=== PATIENT | female | born 1955 | race Caucasian/White ===

== ENCOUNTER 2019-05-02 13:18 | Emergency (ER) | payer SELFPAY ==
[2019-05-02 13:51] LABS: Absolute Lymphocytes (CBC) 1.3 K/uL (0.7-4.9); Basophils % 0.2 % (0-1.3); Hematocrit 36.4 % (36.0-45.0); Lymphocytes % 25.2 % (15.3-44.8); MPV 9.6 fL (7.6-11.3); RBC Red Blood Cell Count 4.03 M/uL (3.86-4.86)
[2019-05-02 13:52] LABS: Protime INR 1.05
[2019-05-02 14:29] LABS: ALT/SGPT 16 U/L (12-78); AST/SGOT 10 U/L (15-37); Alkaline Phosphatase 119 U/L (45-117); BUN Blood Urea Nitrogen 17 mg/dL (7-18); Bicarbonate 29 mmol/L (21-32); Bilirubin Direct 0.2 mg/dL (0-0.2); Bilirubin Total 0.7 mg/dL (0.2-1.0); Glucose Level 93 mg/dL (74-106); Potassium 4.3 mmol/L (3.5-5.1); Sodium Level 143 mmol/L (136-145)
[2019-05-02 14:30] LABS: Albumin 3.3 g/dL (3.4-5.0); Magnesium 1.8 mg/dL (1.8-2.4); NT PRO-BNP 487 pg/mL (<125); Protein, Total 6.5 g/dL (6.4-8.2); Troponin (Emerg Dept Use Only) < 0.02 ng/mL (0.0-0.045)
[2019-05-02] MEDS ORDERED: NA CHLORIDE 0.9% 1,000 ML ONE (14:31)
--- NOTE | 2019-05-02 15:06 | RAD REPORT ---
EXAM DESCRIPTION: RAD - Chest Single View - 05/02/2019 2:18 pm CLINICAL HISTORY: Chest pain COMPARISON: September 2016 TECHNIQUE: AP portable chest image was obtained 1402 hours . FINDINGS: No focal mass or consolidation. Patient has chronic interstitial lung disease that is not substantially different. Fullness of the right hilum is present. This is believed to be the affects o f rotation. Mass is unlikely but can be better evaluated with standard two view imaging. No dense mas s or consolidation of the right perihilar region. Heart and vasculature are normal. No measurable ple ural effusion and no pneumothorax. No acute bony abnormality seen. No acute aortic findings suspected . IMPRESSION: Chronic interstitial lung disease not substantially different from comparison. No focal mass or consolidations seen. Chronic disease could mask early edema or infiltrate. Fullness of the right hilum is believed to be artifact of rotation rather than mass. As clinical find ings warrant, followup two view examination could be obtained.
--- NOTE | 2019-05-02 17:20 | ER ---
Nurse's Notes [facility] Name: Cydney Muhammad Age: 63 yrs Sex: Female : 1955 Arrival Date: 05/02/2019 Time: 13:17 Bed 13 Private MD: Diagnosis: Chest pain, unspecified Presentation: 05/02 13:04 Presenting complaint: EMS states: Pt. c/o chest pain on the left chest, does not rb1 radiate. No aspirin was given due to a liver transplant, and no Nitro was given due to BP 102/60. Has a cough and congestion, currently on her second Z-pack. Has had flu like symptoms for a week. Reports feeling dizzy. 12- lead was SR. BP 102/60, 140/80, P 70's, 98% 2 L NC. Allergy to penicillin and sulfa drugs. Transition of care: patient was not received from another setting of care. Onset of symptoms was May 02, 2019. Risk Assessment: Do you want to hurt yourself or someone else? Patient reports no desire to harm self or others. Initial Sepsis Screen: Does the patient meet any 2 criteria? No. Patient's initial sepsis screen is negative. Does the patient have a suspected source of infection? No. Patient's initial sepsis screen is negative. Care prior to arrival: None. 13:04 Method Of Arrival: EMS: [facility] 13:04 Acuity: PO 3 rb1 Triage Assessment: 13:04 General: Appears in no apparent distress. comfortable, Behavior is calm, cooperative, rb1 Denies fever. Pain: Complains of pain in anterior aspect of left upper chest Pain currently is 5 out of 10 on a pain scale. Quality of pain is described as dull. Neuro: Level of Consciousness is awake, alert, obeys commands, Oriented to person, place, time, situation. Neuro: Reports dizziness, weakness in generalized. Cardiovascular: Capillary refill < 3 seconds is brisk in bilateral fingers. Respiratory: Reports shortness of breath cough that is Reports cough/congestion is currently on her 2nd round of a Z-pack. Airway is patent Respiratory effort is even, unlabored, Respiratory pattern is regular, symmetrical. GI: No signs and/or symptoms were reported involving the gastrointestinal system. : No signs and/or symptoms were reported regarding the genitourinary system. Derm: Skin is pink, warm \T\ dry. Musculoskeletal: Range of motion: intact in all extremities. Historical: - Allergies: 13:04 Codeine; rb1 13:04 Darvon; rb1 13:04 Sulfa (Sulfonamide Antibiotics); rb1 13:04 Tetracycline; rb1 13:04 PENICILLINS; rb1 - PMHx: 13:04 Cirrhosis; GERD; Hypothyroidism; rb1 - PSHx: 13:04 Cholecystectomy; Hysterectomy; Liver Transplant; Verices banded; Tonsillectomy; rb1 - Immunization history:: Adult Immunizations up to date. - Social history:: Smoking status: Patient uses tobacco products, denies chronic smoking, but will smoke occasionally. - Ebola Screening: : Patient negative for fever greater than or equal to 101.5 degrees Fahrenheit, and additional compatible Ebola Virus Disease symptoms. Screenin:04 Abuse screen: Denies threats or abuse. Nutritional screening: No deficits noted. rb1 Tuberculosis screening: No symptoms or risk factors identified. Fall Risk None identified. Assessment: 13:04 Pain: Pain does not radiate. rb1 13:04 General: See triage assessment. rb1 14:00 Reassessment: Patient appears in no apparent distress at this time. Patient and/or rb1 family updated on plan of care and expected duration. Pain level reassessed. Patient is alert, oriented x 3, equal unlabored respirations, skin warm/dry/pink. Patient states symptoms have improved. 14:45 Reassessment: Patient appears in no apparent distress at this time. Pt. is talking on rb1 her telephone. 15:44 Reassessment: Patient appears in no apparent distress at this time. Patient and/or rb1 family updated on plan of care and expected duration. Pain level reassessed. Patient is alert, oriented x 3, equal unlabored respirations, skin warm/dry/pink. 16:44 Reassessment: Patient appears in no apparent distress at this time. No changes from rb1 previously documented assessment. Patient states symptoms have improved. 17:22 Reassessment: Patient appears in no apparent distress at this time. Patient and/or rb1 family updated on plan of care and expected duration. Pain level reassessed. Patient is alert, oriented x 3, equal unlabored respirations, skin warm/dry/pink. Patient states feeling better. Vital Signs: 13:04 BP 109 / 64; Pulse 75; Resp 19; Temp 98.1; Pulse Ox 95% on 2 lpm NC; Weight 53.98 kg rb1 (R); Height 5 ft. 4 in. (162.56 cm) (R); 13:49 BP 111 / 58 Supine; Pulse 70; jb1 13:49 BP 109 / 63 Sitting; Pulse 75; jb1 13:49 BP 116 / 68 Standing; Pulse 77; jb1 14:02 BP 116 / 68; Pulse 86; Resp 20; Pulse Ox 95% on 2 lpm NC; Pain 2/10; rb1 15:00 BP 102 / 53; Pulse 73; Resp 20; Pulse Ox 99% on R/A; rb1 16:00 BP 105 / 64; Pulse 75; Resp 17; Pulse Ox 99% on R/A; Pain 2/10; rb1 17:00 BP 102 / 61; Pulse 79; Resp 19; Pulse Ox 99% on R/A; Pain 1/10; rb1 13:04 Body Mass Index 20.43 (53.98 kg, 162.56 cm) rb1 ED Course: 13:04 Maintain EMS IV. Dressing intact. Good blood return noted. Site clean \T\ dry. Gauge \T\ rb 1 site: 20 G L AC. Oxygen administration via nasal cannula \T\ 2L/min. 13:04 Arm band placed on right wrist. rb1 13:04 Patient has correct armband on for positive identification. Bed in low position. Call rb1 light in reach. Side rails up X 1. records and information manager on. Pulse ox on. NIBP on. Warm blanket given. socks. 13:17 Patient arrived in ED. rb1 13:21 Pepper Alfonso, JAIME is [facility]. kb 13:21 Juma Earl MD is Attending Physician. kb 13:25 Triage completed. rb1 13:26 Ashley Currie, ETELVINA is Primary Nurse. rb1 13:39 EKG done, by cmm technician. reviewed by Juma Earl MD. at1 14:26 XRAY Chest (1 view) In Process Unspecified. EDMS 16:38 Repeat lab(s) drawn. by me, sent to lab. EKG done, by ED staff, reviewed by Pepper SANDOVAL. 16:39 Troponin (emerg Dept Use Only) Sent. jb1 17:37 No provider procedures requiring assistance completed. IV discontinued, intact, rb1 bleeding controlled, No redness/swelling at site. Pressure dressing applied. Administered Medications: 14:31 Drug: NS 0.9% 1000 ml Route: IV; Rate: 1000 ml; Site: left antecubital; rb1 15:43 Follow up: IV Status: Completed infusion rb1 Outcome: 17:19 Discharge ordered by . kb 17:37 Patient left the ED. rb1 17:37 Discharged to home ambulatory. rb1 17:37 Condition: stable 17:37 Discharge instructions given to patient, Instructed on discharge instructions, follow up and referral plans. Demonstrated understanding of instructions, follow-up care. Signatures: Dispatcher [employer] Guillermo Robbins jb1 Pepper Alfonso, FABRIC AND TEXTILE FACTORY WORKER-C FABRIC AND TEXTILE FACTORY WORKER-Ckb Gypsy Lopez, sales representative girls' apparel EKG Tat1 Ashley Currie, RN RN rb1
--- NOTE | 2019-05-02 17:20 | EDPHYS ---
Physician Documentation [facility] Name: Cydney Muhammad Age: 63 yrs Sex: Female : 1955 Arrival Date: 05/02/2019 Time: 13:17 Bed 13 Private MD: ED Physician Juma Earl HPI: 05/02 15:00 This 63 yrs old Female presents to ER via EMS with complaints of Chest Pain. kb 15:01 The patient or guardian reports chest pain that is located primarily in the anterior kb chest wall, left. Onset: 1 hour(s) ago. The pain does not radiate. Associated signs and symptoms: Pertinent positives: cough, dizziness, lightheadedness, near-syncope. The chest pain is described as dull, sharp. Duration: The patient or guardian reports a single episode. Severity of pain: At its worst the pain was moderate in the emergency department the pain has improved moderately. The patient has not experienced similar symptoms in the past. The patient has not recently seen a physician. Pt reports she had had a cough and congestion for a week. Today she went to the [employer] store and had chest pain, felt weak and dizzy when standing in line. Got home and had the feeling again and like she might pass out so she called 911. Pt reports pain was sharp at the time it started and is now dull and continuously getting better. . Historical: - Allergies: 13:04 Codeine; rb1 13:04 Darvon; rb1 13:04 Sulfa (Sulfonamide Antibiotics); rb1 13:04 Tetracycline; rb1 13:04 PENICILLINS; rb1 - PMHx: 13:04 Cirrhosis; GERD; Hypothyroidism; rb1 - PSHx: 13:04 Cholecystectomy; Hysterectomy; Liver Transplant; Verices banded; Tonsillectomy; rb1 - Immunization history:: Adult Immunizations up to date. - Social history:: Smoking status: Patient uses tobacco products, denies chronic smoking, but will smoke occasionally. - Ebola Screening: : Patient negative for fever greater than or equal to 101.5 degrees Fahrenheit, and additional compatible Ebola Virus Disease symptoms. ROS: 14:58 Constitutional: Negative for fever, chills, and weight loss, ENT: Negative for injury, kb pain, and discharge, Neck: Negative for injury, pain, and swelling, Abdomen/GI: Negative for abdominal pain, nausea, vomiting, diarrhea, and constipation, Back: Negative for injury and pain, MS/Extremity: Negative for injury and deformity, Skin: Negative for injury, rash, and discoloration. 14:58 Cardiovascular: Positive for chest pain, Negative for edema, orthopnea, palpitations, paroxysmal nocturnal dyspnea. 14:59 Neuro: Positive for dizziness, weakness. kb 15:01 Respiratory: Positive for cough, Negative for dyspnea on exertion, hemoptysis, kb orthopnea, pleurisy, shortness of breath, sputum production, wheezing. Exam: 14:59 Constitutional: This is a well developed, well nourished patient who is awake, alert, kb and in no acute distress. Head/Face: Normocephalic, atraumatic. ENT: Nares patent. No nasal discharge, no septal abnormalities noted. Tympanic membranes are normal and external auditory canals are clear. Oropharynx with no redness, swelling, or masses, exudates, or evidence of obstruction, uvula midline. Mucous membranes moist. Neck: Trachea midline, no thyromegaly or masses palpated, and no cervical lymphadenopathy. Supple, full range of motion without nuchal rigidity, or vertebral point tenderness. No Meningismus. Chest/axilla: Normal chest wall appearance and motion. Nontender with no deformity. No lesions are appreciated. Cardiovascular: Regular rate and rhythm with a normal S1 and S2. No gallops, murmurs, or rubs. Normal PMI, no JVD. No pulse deficits. Respiratory: Lungs have equal breath sounds bilaterally, clear to auscultation and percussion. No rales, rhonchi or wheezes noted. No increased work of breathing, no retractions or nasal flaring. Abdomen/GI: Soft, non-tender, with normal bowel sounds. No distension or tympany. No guarding or rebound. No evidence of tenderness throughout. Skin: Warm, dry with normal turgor. Normal color with no rashes, no lesions, and no evidence of cellulitis. MS/ Extremity: Pulses equal, no cyanosis. Neurovascular intact. Full, normal range of motion. Neuro: Awake and alert, GCS 15, oriented to person, place, time, and situation. Cranial nerves II-XII grossly intact. Motor strength 5/5 in all extremities. Sensory grossly intact. Cerebellar exam normal. Normal gait. Vital Signs: 13:04 BP 109 / 64; Pulse 75; Resp 19; Temp 98.1; Pulse Ox 95% on 2 lpm NC; Weight 53.98 kg rb1 (R); Height 5 ft. 4 in. (162.56 cm) (R); 13:49 BP 111 / 58 Supine; Pulse 70; jb1 13:49 BP 109 / 63 Sitting; Pulse 75; jb1 13:49 BP 116 / 68 Standing; Pulse 77; jb1 14:02 BP 116 / 68; Pulse 86; Resp 20; Pulse Ox 95% on 2 lpm NC; Pain 2/10; rb1 15:00 BP 102 / 53; Pulse 73; Resp 20; Pulse Ox 99% on R/A; rb1 16:00 BP 105 / 64; Pulse 75; Resp 17; Pulse Ox 99% on R/A; Pain 2/10; rb1 17:00 BP 102 / 61; Pulse 79; Resp 19; Pulse Ox 99% on R/A; Pain 1/10; rb1 13:04 Body Mass Index 20.43 (53.98 kg, 162.56 cm) rb1 MDM: 13:21 Patient medically screened. kb 14:58 Data reviewed: vital signs, nurses notes. Data interpreted: Pulse oximetry: on room air kb is 95 %. Interpretation: normal. 16:20 ED course: Pt takes antirejection medications between 5 and 6 and cannot take them at any other time. Asks to leave now. Educated that we are waiting to repeat troponin and EKG 4 hours as after first draw to make sure there is no change. Pt requests that we do it at 1630 instead so she can be home in time to take her medications. . 17:14 Counseling: I had a detailed discussion with the patient and/or guardian regarding: the kb historical points, exam findings, and any diagnostic results supporting the discharge/admit diagnosis, lab results, radiology results, the need for outpatient follow up, a family practitioner, to return to the emergency department if symptoms worsen or persist or if there are any questions or concerns that arise at home. 05/02 13:21 Order name: Basic Metabolic Panel; Complete Time: 14:35 kb 05/02 13:21 Order name: CBC with Diff; Complete Time: 13:57 kb 05/02 13:21 Order name: LFT's; Complete Time: 14:35 kb 05/02 13:21 Order name: Magnesium; Complete Time: 14:35 kb 05/02 13:21 Order name: NT PRO-BNP; Complete Time: 14:35 kb 05/02 13:21 Order name: PT-INR; Complete Time: 13:57 kb 05/02 13:21 Order name: Troponin (emerg Dept Use Only); Complete Time: 14:35 kb 05/02 13:21 Order name: XRAY Chest (1 view); Complete Time: 15:15 kb 05/02 13:21 Order name: EKG; Complete Time: 13:22 kb 05/02 13:21 Order name: Cardiac monitoring; Complete Time: 13:40 kb 05/02 13:21 Order name: Flu; Complete Time: 14:19 kb 05/02 16:23 Order name: Troponin (emerg Dept Use Only); Complete Time: 17:19 kb 05/02 16:23 Order name: EKG; Complete Time: 16:24 kb 05/02 13:21 Order name: EKG - Nurse/Tech; Complete Time: 13:41 kb 05/02 13:21 Order name: IV Saline Lock; Complete Time: 13:40 kb 05/02 13:21 Order name: Labs collected and sent; Complete Time: 13:40 kb 05/02 13:21 Order name: O2 Per Protocol; Complete Time: 13:40 kb 05/02 13:21 Order name: O2 Sat Monitoring; Complete Time: 13:40 kb 05/02 13:21 Order name: Orthostatics; Complete Time: 13:50 kb 05/02 16:23 Order name: EKG - Nurse/Tech; Complete Time: 16:39 kb Administered Medications: 14:31 Drug: NS 0.9% 1000 ml Route: IV; Rate: 1000 ml; Site: left antecubital; rb1 15:43 Follow up: IV Status: Completed infusion rb1 Disposition: 19:08 Co-signature as Attending Physician, Juma Earl MD. rn Disposition: 05/02/19 17:19 Discharged to Home. Impression: Chest pain, unspecified. - Condition is Stable. - Discharge Instructions: Nonspecific Chest Pain, [id number]. - Medication Reconciliation Form, Thank You Letter, Antibiotic Education, Prescription Opioid Use form. - Follow up: Emergency Department; When: As needed; Reason: Worsening of condition. Follow up: Private Physician; When: 2 - 3 days; Reason: Recheck today's complaints, Continuance of care, Re-evaluation by your physician. Signatures: Dispatcher [employer] EDMS Kaden Pepper, THERMO CEMENTING FOLDER OPERATOR-C THERMO CEMENTING FOLDER OPERATOR-Juma Del Toro MD MD rn Barber, Rebecca, RN RN rb1 Corrections: (The following items were deleted from the chart) 14:59 14:58 Constitutional: Negative for fever, chills, and weight loss, ENT: Negative for kb injury, pain, and discharge, Neck: Negative for injury, pain, and swelling, Respiratory: Negative for shortness of breath, cough, wheezing, and pleuritic chest pain, Abdomen/GI: Negative for abdominal pain, nausea, vomiting, diarrhea, and constipation, Back: Negative for injury and pain, MS/Extremity: Negative for injury and deformity, Skin: Negative for injury, rash, and discoloration, Neuro: Negative for headache, weakness, numbness, tingling, and seizure, kb 15:01 14:58 Constitutional: Negative for fever, chills, and weight loss, ENT: Negative for kb injury, pain, and discharge, Neck: Negative for injury, pain, and swelling, Respiratory: Negative for shortness of breath, cough, wheezing, and pleuritic chest pain, Abdomen/GI: Negative for abdominal pain, nausea, vomiting, diarrhea, and constipation, Back: Negative for injury and pain, MS/Extremity: Negative for injury and deformity, Skin: Negative for injury, rash, and discoloration, kb 17:37 17:19 05/02/2019 17:19 Discharged to Home. Impression: Chest pain, unspecified. rb1 Condition is Stable. Discharge Instructions: Nonspecific Chest Pain, [id number]. Forms are Medication Reconciliation Form, Thank You Letter, Antibiotic Education, Prescription Opioid Use. Follow up: Emergency Department; When: As needed; Reason: Worsening of condition. Follow up: Private Physician; When: 2 - 3 days; Reason: Recheck today's complaints, Continuance of care, Re-evaluation by your physician. kb
[2019-05-02 18:21] VITALS: BP 102/53; O2SAT 99
--- NOTE | 2019-05-02 22:55 | EKG ---
Test Date: 2019-05-02 Test Time: 13:28:49 Ream Cutter: JOVANA MEASUREMENT RESULTS: Intervals: Rate: 82 TN: 122 QRSD: 70 QT: 358 QTc: 418 [place]: P: 74 TN: 122 QRS: 74 T: 76 INTERPRETIVE STATEMENTS: Normal sinus rhythm Normal ECG Compared to ECG 10/23/2016 20:57:59 Sinus bradycardia no longer present Sinus arrhythmia no longer present Electronically Signed On 05-02-19 22:55:05 MOTOR BLOCK MECHANIC by Chon Hdez
--- NOTE | 2019-05-03 07:02 | EKG ---
Test Date: 2019-05-02 Test Time: 16:33:44 Armoured Car Escort: LEILA MEASUREMENT RESULTS: Intervals: Rate: 71 HI: 128 QRSD: 78 QT: 380 QTc: 412 [place]: P: 69 HI: 128 QRS: 80 T: 78 INTERPRETIVE STATEMENTS: Normal sinus rhythm Normal ECG Compared to ECG 05/02/2019 13:28:49 No significant changes Electronically Signed On 05-03-19 07:01:32 COMPANY DRIVER by Chno Hdez
== END 2019-05-02 17:37 | disposition home or self-care (01) ==
LOC: ER 13:18
DX: R07.9 Chest pain, unspecified (principal); E03.9 Hypothyroidism, unspecified; Z72.0 Tobacco use; Z88.0 Allergy status to penicillin; Z88.1 Allergy status to other antibiotic agents; Z88.2 Allergy status to sulfonamides; Z88.5 Allergy status to narcotic agent; Z94.4 Liver transplant status
CPT/HCPCS: 36415; 71045; 80048; 80076; 83735; 83880; 84484; 85025; 85610; 87804; 93005; 96360; 99285; J7030

== ENCOUNTER 2022-01-07 06:23 | Day surgery (SDC) | payer OTHER, SELFPAY ==
[2022-01-05 12:06] LABS: SARS-CoV-2 Antigen Rapid Res Negative (Negative)
--- NOTE | 2022-01-06 14:34 | EKG ---
Test Date: 2022-01-05 Test Time: 10:58:01 Smocker: JOSELO MEASUREMENT RESULTS: Intervals: Rate: 56 PA: 122 QRSD: 82 QT: 392 QTc: 378 [place]: P: 60 PA: 122 QRS: 72 T: 74 INTERPRETIVE STATEMENTS: Sinus bradycardia Otherwise normal ECG Compared to ECG 05/02/2019 16:33:44 Sinus rhythm no longer present Electronically Signed On 01-06-22 14:31:49 CDT by Bobby Brian
[2022-01-07] MEDS ORDERED: Ringers Lactate 1,000 ML IV ONE (06:48)
[2022-01-07] MEDS ORDERED: propofoL 200 MG/20 ML VIAL IV ONE (07:29)
[2022-01-07] MEDS ORDERED: LIDOCAINE 1% MPF 5 ML VIAL ONE (07:30)
[2022-01-07] MEDS ORDERED: MIDAZOLAM HCL 2 MG/2 ML INJ ONE (07:30)
[2022-01-07] MEDS ORDERED: FENTANYL CITR 100 MCG/2 ML ONE (07:30)
[2022-01-07] MEDS ORDERED: LIDOCAINE 1% W/EPI 1:100,000 10 ML VIAL ONE (07:59)
[2022-01-07] MEDS ORDERED: dexAMETHasone 4 MG/ML VIAL ONE (08:15)
[2022-01-07] MEDS ORDERED: KETOROLAC 30 MG/ML INJ ONE (09:31)
--- NOTE | 2022-01-07 09:41 | P.OP ---
Road Boss: NONE,NONE Preoperative diagnosis: Basal cell carcinoma right nasal sidewall Postoperative diagnosis: Same Primary procedure: Wide local excision with frozen section, nose 1.4 cm Secondary procedure: Closure via local rotational flap Anesthesia: General via LMA Estimated blood loss: 5 mL Specimen: Right nose basal cell carcinoma, suture paredes 12:00, frozen section Findings: Negative peripheral and deep margins Operative Technique: After adequate plane of anesthesia, the skin of the nose and upper face is cleaned with alcohol. The biopsy site is easily identified. The area of the glabella, nose, and right medial cheek is injected with 1% lidocaine with epinephrine. A total of 4.5 milliliters is used. The patient's face is then prepped and draped in a standard sterile fashion. An excision around the prior scar and biopsy site is designed with a gross 2 mm margin and marked with a surgical pen. A 15 blade scalpel is used to incise through the skin and subcutaneous tissues elevating the specimen sharply from the underlying soft tissues. A suture is placed at the superiormost aspect indicating 12:00. The specimen is sent to pathology for frozen section analysis. While awaiting tissue diagnosis, the surrounding tissues are carefully undermined and reconstruction considerations are made. The defect is noted to be 14 x 10 mm encompassing a large portion of the right nasal sidewall. Taking into account the patient's skin laxity, texture, and orientation of rhytids, with his desire to avoid distortion or compromise function of the right lower eyelid, I elected for closure via a rotational flap. A right superiorly based rhomboid flap was designed, cut and advanced. The flap was sutured in place with 4-0 Vicryl sutures. A small burrows triangle was excised at the border between the right medial cheek and right lower eyelid. An additional burrows triangle was excised in the lower portion of the glabella. This allowed good approximation of the tissues. Additional tension reducing sutures were applied. The skin was then closed in a running fashion using 5-0 fast absorbing gut. There was no significant tension noted along the lower eyelid with this closure. The skin was cleaned and dried, triple antibiotic ointment was applied and the patient was returned to care of anesthesia for awakening and transportation to the recovery room. Complications: None Implants: None Fluids & blood products: Crystalloid, see anesthesia record Transferred to: Recovery Room Condition: Good
[2022-01-07 09:51] VITALS: TEMP 97.6
[2022-01-07 12:01] VITALS: BP 120/44; O2SAT 97
== END 2022-01-07 10:25 | disposition home or self-care (01) ==
LOC: OR 06:23
PROVIDERS: ATTEND Otolaryngology
PROC: 0HX1XZZ Transfer Face Skin, External Approach (ICD-10-PCS; 2022-01-07)
PROC: 0JB10ZZ Excision of Face Subcutaneous Tissue and Fascia, Open Approach (ICD-10-PCS; principal; 2022-01-07 07:45)
DX: C44.311 Basal cell carcinoma of skin of nose (principal); Z72.0 Tobacco use; L57.0 Actinic keratosis; Z20.822 Contact with and (suspected) exposure to COVID-19
CPT/HCPCS: 93005; 36415; 88331; 88332; 88305; 87811; 11642; 14040; J2704; J1100; J2250; J3010; J7120

== ENCOUNTER 2023-11-28 12:36 | Emergency (ER) | payer OTHER ==
[2023-11-28] MEDS ORDERED: KETOROLAC 30 MG/ML INJ ONE (13:51)
--- NOTE | 2023-11-28 14:24 | RAD REPORT ---
EXAM DESCRIPTION: USExtrem Venous W Compress Bil11/28/2023 1:58 pm CLINICAL HISTORY: Leg swelling COMPARISON: none FINDINGS: The common femoral, superficial femoral, greater saphenous, popliteal and posterior tibial veins bilaterally are compressible and demonstrate augmentation. Doppler demonstrates good flow. Grayscale, color and spectral analysis performed on all vessels IMPRESSION: No evidence of deep venous thrombosis involving either lower extremity.
--- NOTE | 2023-11-28 14:29 | RAD REPORT ---
EXAM DESCRIPTION: US - Lower Extremity Arterial Bilat - 11/28/2023 2:10 pm CLINICAL HISTORY: Leg pain COMPARISON: None FINDINGS: Common femoral superficial femoral arteries demonstrate triphasic waveforms bilaterally The popliteal, posterior tibial and dorsalis pedis arteries bilaterally demonstrate triphasic wavefor ms No occlusion. No high-grade stenosis seen Grayscale, color and spectral analysis performed on all vessels IMPRESSION: Mild distal bilateral lower extremity arterial disease
[2023-11-28 15:34] LABS: Specific Gravity 1.015 (1.005-1.030); Sqamous Epithelial None Seen /HPF (None Seen); Urine Bacteria None Seen /HPF (<20); Urine Bilirubin NEGATIVE (Negative); Urine Blood Negative (Negative); Urine Clarity Clear (Clear); Urine Color Colorless (Yellow); Urine Culture Reflex Order NOT NEEDED; Urine Glucose NEGATIVE (Negative); Urine Ketones NEGATIVE (Negative); Urine Microscopic Reflex YN ORDER UMIC; Urine Mucus Slight /HPF (None Seen); Urine Nitrite NEGATIVE (Negative); Urine Protein NEGATIVE (Negative); Urine RBC <5 /HPF (None Seen); Urine Urobilinogen Normal (Normal); Urine WBC <5 /HPF (<5)
[2023-11-28 15:36] LABS: Absolute Lymphocytes (CBC) 1.2 K/uL (0.7-4.9); Absolute Neutrophil 12.2 K/uL (1.8-8.0); Basophils % 0.1 % (0-1.3); Eosinophils % 0.2 % (0-4.4); Hematocrit 40.7 % (36.0-45.0); Hemoglobin 13.5 g/dL (12.0-15.0); Lymphocytes % 8.4 % (15.3-44.8); MCH 31.8 pg (27.0-35.0); MCHC 33.1 g/dL (32.0-36.0); MCV 95.8 fL (80-100); MPV 8.7 fL (7.6-11.3); Monocytes % 7.1 % (3.3-12.3); Neutrophils % 84.2 % (41.7-73.7); Nucleated RBC Absolute Count 0.1 (0-0); Nucleated Red Blood Cells % 0.5 % (0-0); Platelets 260 thou/uL (152-406); RBC Red Blood Cell Count 4.24 M/uL (3.86-4.86); Red Cell Distribution Width 16.3 % (12.1-15.2)
[2023-11-28 15:38] LABS: PT Prothrombin Time 12.7 SECONDS (9.4-12.5); Protime INR 1.16
--- NOTE | 2023-11-28 15:38 | RAD REPORT ---
EXAM DESCRIPTION: RAD - Hip Left 2 View - 11/28/2023 2:38 pm CLINICAL HISTORY: Left hip pain FINDINGS: No fracture or dislocation is seen. Mild osteoarthritis left hip consisting of mild joint space narrowing and subchondral sclerosis. Bone s appear osteoporotic
[2023-11-28 15:50] LABS: ALT/SGPT 26 U/L (13-56); Alkaline Phosphatase 141 U/L (45-117); Anion Gap 2.7 mEq/L (5.0-15.0); BUN Blood Urea Nitrogen 59 mg/dL (7-18); Bicarbonate 38 mEq/L (21-32); Bilirubin Direct 0.2 mg/dL (0-0.2); Bilirubin Indirect, Calculated 0.2 mg/dL (0.2-0.8); Bilirubin Total 0.4 mg/dL (0.2-1.0); Glomerular Filtration Rate 41 ml/min (=/>90); Glucose Level 90 mg/dL (74-106); Magnesium 2.5 mg/dL (1.6-2.4); NT PRO-BNP 617 pg/mL (<125); Potassium 4.7 mEq/L (3.5-5.1); Sodium Level 139 mEq/L (136-145); Troponin High Sensitivity 7.5 pg/mL (<58.9)
[2023-11-28 15:51] LABS: AST/SGOT < 10 U/L (15-37)
--- NOTE | 2023-11-28 17:00 | RAD REPORT ---
EXAM DESCRIPTION: CT - Chest For Pe Angio - 11/28/2023 4:49 pm CLINICAL HISTORY: Chest pain COMPARISON: None. TECHNIQUE: Dynamically enhanced axial 3 mm thick images of the chest were obtained during administra tion of 100 mL Isovue 370 IV contrast. Coronal and oblique reconstruction images were generated and r eviewed. Exam utilizes a protocol for optimal evaluation of pulmonary arterial tree. Maximum intensity projections 3D imaging was utilized All CT scans are performed using dose optimization technique as appropriate and may include automated exposure control or mA/KV adjustment according to patient size. FINDINGS: A pulmonary embolus is not seen. A thoracic aortic aneurysm is not noted. A pleural effusion is not seen. A pericardial effusion is not seen. A lung consolidation is not present. Mild COPD IMPRESSION: Negative for a pulmonary embolism.
--- NOTE | 2023-11-28 17:01 | RAD REPORT ---
EXAM DESCRIPTION: Obed Single View11/28/2023 2:38 pm CLINICAL HISTORY: Swelling COMPARISON: 2019 FINDINGS: Lungs are hyperaerated. The lungs appear clear of acute infiltrate. The heart is normal size IMPRESSION: No acute abnormalities displayed
--- NOTE | 2023-11-28 17:25 | ER ---
Nurse's Notes [facility] Name: Cydney Muhammad Age: 68 yrs Sex: Female : 1955 Arrival Date: 11/28/2023 Time: 12:36 Bed 6 Private MD: Diagnosis: Edema, unspecified;Pain in left hip Presentation: 11/27 12:53 Chief complaint: Patient states: BILAT LEG SWELLING X 3 WEEKS. HX OF LIVER TRANSPLANT db 10 YRS AGO HAD LABS DONE YESTERDAY AND SENT BY PHYSICIAN FOR ELEVATED WBC 12.6, ELEVATED BUN AND POSS BLOOD CLOT. Coronavirus screen: Client denies travel out of the [place] in the last 14 days. At this time, the client does not indicate any symptoms associated with coronavirus-19. Ebola Screen: Patient negative for fever greater than or equal to 101.5 degrees Fahrenheit, and additional compatible Ebola Virus Disease symptoms Patient denies exposure to infectious person. Patient denies travel to an Ebola-affected area in the 21 days before illness onset. No symptoms or risks identified at this time. Initial Sepsis Screen: Does the patient meet any 2 criteria? No. Patient's initial sepsis screen is negative. Does the patient have a suspected source of infection? No. Patient's initial sepsis screen is negative. Risk Assessment: Do you want to hurt yourself or someone else? Patient reports no desire to harm self or others. Onset of symptoms was November 28, 2023. 12:53 Method Of Arrival: Ambulatory db 12:53 Acuity: PO 3 db Triage Assessment: 12:55 General: Appears in no apparent distress. comfortable, Behavior is calm, cooperative. db Pain: Complains of pain in right leg and left leg. Neuro: Level of Consciousness is awake, alert, obeys commands, Oriented to person, place, time. Respiratory: Airway is patent Respiratory effort is even, unlabored, Respiratory pattern is regular, symmetrical. Historical: - Allergies: 12:55 Codeine; db 12:55 Darvon; db 12:55 PENICILLINS; db 12:55 Sulfa (Sulfonamide Antibiotics); db 12:55 Tetracycline; db 12:56 tramadol; db 12:56 Flagyl; db 12:56 Levofloxacin; db 12:56 GABAPENTIN; db 12:56 Amoxicillin; db 12:56 Cipro; db 12:56 Spironolactone; db - PMHx: 12:55 Cirrhosis; GERD; Hypothyroidism; db 12:56 HEPATITIS C; RECTAL CANCER; db - PSHx: 12:55 LIVER TRANSPLANT (Hypothyroidism); db 12:56 HYSTERECTOMY; db 12:58 Cholecystectomy; db - Immunization history:: Adult Immunizations unknown. - Infectious Disease History:: Denies. - Social history:: Smoking status: Patient reports the use of cigarette tobacco products, smokes one pack cigarettes per day. Screenin:40 [facility] ED Fall Risk Assessment (Adult) History of falling in the last 3 months, ld1 including since admission No falls in past 3 months (0 pts) Confusion or Disorientation No (0 pts) Intoxicated or Sedated No (0 pts) Impaired Gait No (0 pts) Mobility Assist Device Used No (0 pt) Altered Elimination No (0 pt) Score/Fall Risk Level 0 - 2 = Low Risk Oriented to surroundings, Maintained a safe environment, Educated pt \T\ family on fall prevention, incl call for assistance when getting out of bed, Assessed \T\ reinforced patient's understanding of fall precautions, Provided non-skid footwear, Hourly rounding (assess needs \T\ fall precautionary measures) done, Used ambulatory aids as needed (educated on \T\ assisted with), Used gait belt as appropriate. Abuse screen: Denies threats or abuse. Denies injuries from another. Nutritional screening: No deficits noted. Nutritional screening: No deficits noted. Tuberculosis screening: Assessment: 15:40 General: Appears in no apparent distress. uncomfortable, Behavior is calm, cooperative, ld1 appropriate for age. Pain: Complains of pain in left hip, right leg and left leg Pain does not radiate. Pain currently is 8 out of 10 on a pain scale. Quality of pain is described as throbbing, Pain began 2-3 days ago. Is continuous. Neuro: Level of Consciousness is awake, alert, obeys commands, Oriented to person, place, time, situation. Cardiovascular: Capillary refill < 3 seconds Patient's skin is warm and dry. Respiratory: Airway is patent Respiratory effort is even, unlabored. GI: Abdomen is round non-distended. : No signs and/or symptoms were reported regarding the genitourinary system. EENT: No signs and/or symptoms were reported regarding the EENT system. Derm: No signs and/or symptoms reported regarding the dermatologic system. Musculoskeletal: Swelling present in right leg and left leg. Vital Signs: 12:53 BP 141 / 68; Pulse 84; Resp 18; Temp 98.7(O); Pulse Ox 95% ; Weight 63.5 kg; Height 5 db ft. 4 in. ; 15:40 BP 128 / 76; Pulse 73; Resp 18; Pulse Ox 99% on R/A; Pain 8/10; ld1 12:53 Body Mass Index 24.03 (63.50 kg, 162.56 cm) db 15:40 Pain Scale: Adult ld1 ED Course: 12:41 Patient arrived in ED. mg5 12:46 Rupert Omalley MD is Attending Physician. ec2 12:55 Triage completed. db 12:59 Arm band placed on Patient placed in an exam room. db 13:11 Janusz Trevino PA is PHCP. cp 13:11 Rupert Omalley MD is Attending Physician. cp 13:44 Natalie Cohen, ETELVINA is Primary Nurse. ld1 13:59 US Extremity Venous W Compression Ben In Process Unspecified. EDMS 14:12 Lower Extremity Arterial Bilat US In Process Unspecified. EDMS 14:40 XRAY Chest (1 view) In Process Unspecified. EDMS 14:40 XRAY Hip LEFT 2 view In Process Unspecified. EDMS 15:23 Inserted saline lock: 20 gauge in left antecubital area, using aseptic technique. Blood ld1 collected. 15:40 Patient has correct armband on for positive identification. Placed in gown. Bed in low ld1 position. Call light in reach. Side rails up X2. deburring and tooling machine operator on. Pulse ox on. NIBP on. Door closed. Noise minimized. Warm blanket given. 15:40 No provider procedures requiring assistance completed. ld1 16:50 CT Chest For PE Angio In Process Unspecified. EDMS 17:46 IV discontinued, intact, bleeding controlled, No redness/swelling at site. Pressure iw dressing applied. Administered Medications: 15:39 Drug: Ketorolac IVP 15 mg IVP once Route: IVP; Site: left antecubital; ld1 Medication: 17:46 VIS not applicable for this client. iw Outcome: 17:24 Discharge ordered by . cp 17:46 Discharged to home ambulatory, with family, iw 17:46 Condition: good 17:46 Discharge instructions given to patient, family, Instructed on discharge instructions, follow up and referral plans. medication usage, Demonstrated understanding of instructions, follow-up care, medications, Prescriptions given X 1, 17:48 Patient left the ED. iw Signatures: Dispatcher [employer] Sudha Willson RN RN iw Janusz Trevino PA PA cp Sims, Lauren, RN RN ld1 Deidre Christopher RN RN db Gardner, Madison 5 Rupert Omalley MD MD ec2
--- NOTE | 2023-11-28 17:25 | EDPHYS ---
Physician Documentation [facility] Name: Cydney Muhammad Age: 68 yrs Sex: Female : 1955 Arrival Date: 11/28/2023 Time: 12:36 Bed 6 Private MD: ED Physician Rupert Omalley HPI: 11/27 13:35 This 68 yrs old Female presents to ER via Ambulatory with complaints of Abnormal Lab cp Results, Leg Swelling. 13:35 The patient presents with swelling, tenderness. The complaints affect the left lower cp leg and right lower leg. 13:35 Onset: The symptoms/episode began/occurred 1 week(s) ago. Associated signs and cp symptoms: Pertinent positives: calf tenderness. Patient reports history of left lower leg DVT from injury to left lower leg. Took Eliquis but stopped taking medication due to hair loss. Historical: - Allergies: 12:55 Codeine; db 12:55 Darvon; db 12:55 PENICILLINS; db 12:55 Sulfa (Sulfonamide Antibiotics); db 12:55 Tetracycline; db 12:56 tramadol; db 12:56 Flagyl; db 12:56 Levofloxacin; db 12:56 GABAPENTIN; db 12:56 Amoxicillin; db 12:56 Cipro; db 12:56 Spironolactone; db - PMHx: 12:55 Cirrhosis; GERD; Hypothyroidism; db 12:56 HEPATITIS C; RECTAL CANCER; db - PSHx: 12:55 LIVER TRANSPLANT (Hypothyroidism); db 12:56 HYSTERECTOMY; db 12:58 Cholecystectomy; db - Immunization history:: Adult Immunizations unknown. - Infectious Disease History:: Denies. - Social history:: Smoking status: Patient reports the use of cigarette tobacco products, smokes one pack cigarettes per day. ROS: 13:40 MS/extremity: Positive for of the left lower leg and right lower leg, edema, cp 13:40 Eyes: Negative for injury, pain, redness, and discharge, cp 13:40 Constitutional: Negative for body aches, chills, fever, poor PO intake, 13:40 ENT: Negative for drainage from ear(s), ear pain, sore throat, difficulty swallowing, difficulty handling secretions, 13:40 Cardiovascular: Positive for edema, Negative for chest pain, 13:40 Respiratory: Negative for cough, shortness of breath, wheezing, 13:40 Abdomen/GI: Negative for abdominal pain, vomiting, diarrhea, constipation, 13:40 Skin: Negative for cellulitis, rash, 13:40 Neuro: Negative for altered mental status, dizziness, headache, weakness, 13:40 All other systems are negative, Exam: 13:45 Constitutional: The patient appears in no acute distress, alert, awake, comfortable, cp non-diaphoretic, non-toxic, well developed, well nourished, 13:45 Head/Face: Normocephalic, atraumatic. cp 13:45 Eyes: Periorbital structures: appear normal, Conjunctiva: normal, no exudate, no injection, Sclera: no appreciated abnormality, Lids and lashes: appear normal, bilaterally, 13:45 ENT: External ear(s): are unremarkable, Nose: is normal, Mouth: Lips: moist, Oral mucosa: pink and intact, moist, Posterior pharynx: Airway: no evidence of obstruction, patent, 13:45 Neck: ROM/movement: is normal, is supple, without pain, no range of motions limitations, 13:45 Chest/axilla: Inspection: normal, 13:45 Cardiovascular: Rate: normal, Rhythm: regular, 13:45 Respiratory: the patient does not display signs of respiratory distress, Respirations: cp normal, no use of accessory muscles, no retractions, labored breathing, is not present, Breath sounds: are clear throughout, no decreased breath sounds, no stridor, no wheezing, 13:45 Abdomen/GI: Inspection: abdomen appears normal, Palpation: abdomen is soft and cp non-tender, in all quadrants, 13:45 Back: pain, is absent, ROM is normal, 13:45 Musculoskeletal/extremity: Extremities: grossly normal except: noted in the left lower leg and right lower leg: swelling, tenderness, There is no evidence of erythema, Pulses: noted to be 2+ in the right dorsalis pedis artery and left dorsalis pedis artery, 13:45 Skin: cellulitis, is not appreciated, no rash present. 13:45 Neuro: Orientation: to person, place \T\ time. Mentation: is normal, Motor: moves all fours, strength is normal, 15:38 ECG was reviewed by the Attending Physician. cp Vital Signs: 12:53 BP 141 / 68; Pulse 84; Resp 18; Temp 98.7(O); Pulse Ox 95% ; Weight 63.5 kg; Height 5 db ft. 4 in. ; 15:40 BP 128 / 76; Pulse 73; Resp 18; Pulse Ox 99% on R/A; Pain 8/10; ld1 12:53 Body Mass Index 24.03 (63.50 kg, 162.56 cm) db 15:40 Pain Scale: Adult ld1 MDM: 13:11 Patient medically screened. cp 14:00 Differential diagnosis: dvt, cellulitis, sepsis, uti, peripheral artery disease, cp dependent edema. 17:23 Data reviewed: vital signs, nurses notes, lab test result(s), EKG, radiologic studies, cp and as a result, I will discharge patient. 17:23 I considered the following discharge prescriptions or medication management in the emergency department Medications were administered in the Emergency Department. See MAR. 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 Response to treatment: the patient's symptoms have markedly improved after treatment, and as a result, I will discharge patient, discussed results of labs, elevated wbc, blood cultures drawn, patient appears non-toxic, so will discharge to home for continued monitoring. 11/27 13:30 Order name: Basic Metabolic Panel; Complete Time: 15:54 11/27 15:56 Interpretation: Normal except: CO2 38; ANION GAP 2.7; BUN 59; CRE 1.40; GFR 41. 11/27 13:30 Order name: CBC with Diff; Complete Time: 15:54 11/27 15:56 Interpretation: Normal except: WBC 14.40; RDW 16.3; EITAN% 84.2; LYM% 8.4; NEUT A 12.2. 11/27 13:30 Order name: LFT's; Complete Time: 15:54 11/27 15:57 Interpretation: Normal except: AST < 10; ALK 141; TP 6.0; ALB 3.0; A/G 1.0. 11/27 13:30 Order name: Magnesium; Complete Time: 15:54 11/27 13:30 Order name: NT PRO-BNP; Complete Time: 15:54 cp 07 17:11 Interpretation: Reviewed. cp 11/27 13:30 Order name: PT-INR; Complete Time: 15:54 cp 11/27 13:30 Order name: Troponin HS; Complete Time: 15:54 cp 11/27 15:57 Interpretation: Reviewed. cp 11/27 13:30 Order name: Urinalysis w/ reflexes; Complete Time: 15:54 cp 11/27 17:18 Order name: Blood Culture Adult (2) cp 11/27 13:30 Order name: XRAY Chest (1 view); Complete Time: 17:09 cp 11/27 17:09 Interpretation: Report review. cp 11/27 13:30 Order name: US Extremity Venous W Compression Ben; Complete Time: 14:42 cp 11/27 14:43 Interpretation: Report reviewed. cp 11/27 13:30 Order name: Lower Extremity Arterial Bilat US; Complete Time: 14:42 cp 11/27 14:43 Interpretation: Report reviewed. cp 11/27 13:30 Order name: CT Chest For PE Angio; Complete Time: 17:09 cp 11/27 17:10 Interpretation: Report reviewed. cp 11/27 13:30 Order name: XRAY Hip LEFT 2 view; Complete Time: 15:54 cp 11/27 13:30 Order name: Cardiac monitoring; Complete Time: 15:39 cp 11/27 13:30 Order name: EKG - Nurse/Tech; Complete Time: 15:39 cp 11/27 13:30 Order name: IV Saline Lock; Complete Time: 15:23 cp 11/27 13:30 Order name: Labs collected and sent; Complete Time: 15:23 cp 11/27 13:30 Order name: O2 Per Protocol; Complete Time: 13:32 cp 11/27 13:30 Order name: O2 Sat Monitoring; Complete Time: 13:32 cp EC:38 Rate is 65 beats/min. Rhythm is regular. UT interval is normal. QRS interval is normal. cp QT interval is normal. Clinical impression: Abnormal EKG without significant change. Interpreted by me. Reviewed by me. Administered Medications: 15:39 Drug: Ketorolac IVP 15 mg IVP once Route: IVP; Site: left antecubital; ld1 Disposition Summary: 11/28/23 17:24 Discharge Ordered Notes: Location: Home cp Problem: new cp Symptoms: have improved cp Condition: Stable cp Diagnosis - Edema, unspecified cp - Pain in left hip cp Followup: cp - With: Private Physician - When: 2 - 3 days - Reason: Recheck today's complaints Discharge Instructions: - Discharge Summary Sheet cp - Hip Pain cp - Peripheral Edema cp - How to Use Compression Stockings cp Forms: - Medication Reconciliation Form cp - Antibiotic Education cp - Prescription Opioid Use cp - Patient Portal Instructions cp - Leadership Thank You Letter cp Prescriptions: - Mobic 7.5 mg Oral Tablet - take 1 tablet ORAL route once daily take with food; 20 tablet; Refills: 0, cp Product Selection Permitted Signatures: Dispatcher [employer] EDMS Janusz Trevino PA PA cp Natalie Cohen RN RN ld1 Deidre Christopher RN RN db Corrections: (The following items were deleted from the chart) 13:31 13:31 Chest Single View+RAD.RAD.BRZ ordered. EDMS EDMS 13:31 13:31 Extrem Venous W Compression Ben+US.RAD.BRZ ordered. EDMS EDMS 13:31 13:31 Lower Extremity Arterial Bilat+US.RAD.BRZ ordered. EDMS EDMS 13:31 13:31 Chest For PE Angio+CT.RAD.BRZ ordered. EDMS EDMS 13:31 13:31 Hip Left 2 View+RAD.RAD.BRZ ordered. EDMS EDMS 17:18 17:18 BLOOD CULTURE*+BA.LAB.BRZ ordered. EDMS EDMS 11/28 16:31 16:21 MS/extremity: Positive for of the left lower leg and right lower leg, edema, cp cp
[2023-11-28 18:04] VITALS: BP 128/76; TEMP 98.7; O2SAT 99
== END 2023-11-28 17:48 | disposition home or self-care (01) ==
LOC: ER 12:36
DX: R60.9 Edema, unspecified (principal); M25.552 Pain in left hip; F17.210 Nicotine dependence, cigarettes, uncomplicated; Z86.718 Personal history of other venous thrombosis and embolism; Z88.1 Allergy status to other antibiotic agents; Z88.2 Allergy status to sulfonamides; Z88.3 Allergy status to other anti-infective agents; Z88.5 Allergy status to narcotic agent; Z88.8 Allergy status to other drugs, medicaments and biological substances
CPT/HCPCS: 87040; 85025; 81001; 80048; 36415; 83735; 85610; 80076; 84484; 83880; 71275; 71045; 73502; 93925; 93970; Q9967; 93005

== ENCOUNTER 2024-07-30 12:14 | Emergency (ER) | payer OTHER ==
[2024-07-30] MEDS ORDERED: MORPHINE 4 MG/ML SYR ONE (12:39)
--- NOTE | 2024-07-30 13:27 | RAD REPORT ---
Exam:Wrist Left 2 View HISTORY: Left wrist pain FINDINGS: Comminuted, markedly displaced intra-articular distal radial fracture. Overriding of the fracture fra gments Moderately to markedly displaced distal ulnar fracture with overriding fracture fragments. No gross dislocation
[2024-07-30] MEDS ORDERED: TDAP (DIPHTH,PERTUSS(ACELL),TET VAC) 0.5 ML VIAL IMVAC ONE (13:28)
[2024-07-30] MEDS ORDERED: CEFAZOLIN SODIUM 1 GM/VIAL ONE (13:28)
[2024-07-30] MEDS ORDERED: NA CHLORIDE 0.9% 100 ML ONE (13:28)
[2024-07-30] MEDS ORDERED: FENTANYL CITR 100 MCG/2 ML ONE ×2 (13:38→14:21)
--- NOTE | 2024-07-30 13:50 | ER ---
Nurse's Notes [facility] Name: Cydney Muhammad Age: 69 yrs Sex: Female : 1955 Arrival Date: 07/30/2024 Time: 12:14 Bed 30 Private MD: Diagnosis: Open Left Radiuis fracture;Open Left Ulna fracture;Fall on same level, unspecified;Abrasion of left hand;Abrasion of left elbow Presentation: 07/30 12:30 Chief complaint: EMS states: Tripped and fell on a rug, obvious deformity to L wrist, ph small abrasions to L nad and L elbow, no other injuries, 20 G to LFA, 150 mcg Fentanyl given. Coronavirus screen: Vaccine status: Patient reports being unvaccinated. Ebola Screen: No symptoms or risks identified at this time. Initial Sepsis Screen: Does the patient meet any 2 criteria? No. Patient's initial sepsis screen is negative. Does the patient have a suspected source of infection? No. Patient's initial sepsis screen is negative. Risk Assessment: Do you want to hurt yourself or someone else? Patient reports no desire to harm self or others. Onset of symptoms was July 30, 2024. 12:30 Method Of Arrival: EMS: [facility] ph 12:30 Acuity: PO 3 ph Triage Assessment: 12:35 General: Appears in no apparent distress. uncomfortable, Behavior is calm, cooperative, ph appropriate for age. Pain: Complains of pain in dorsal aspect of left forearm and left wrist. Neuro: Level of Consciousness is awake, alert, obeys commands, Oriented to person, place, time, situation. Cardiovascular: Capillary refill < 3 seconds in bilateral fingers. Respiratory: Airway is patent Respiratory effort is even, unlabored, Respiratory pattern is regular, symmetrical. Derm: Skin is pink, warm \T\ dry. Musculoskeletal: Bony deformity noted of dorsal aspect of left forearm and left wrist. Injury Description: Abrasion sustained to left elbow and left hand. Historical: - Allergies: 12:32 Amoxicillin; ph 12:32 Cipro; ph 12:32 Codeine; ph 12:32 Darvon; ph 12:32 Flagyl; ph 12:32 GABAPENTIN; ph 12:32 Levofloxacin; ph 12:32 PENICILLINS; ph 12:32 spironolactone; ph 12:32 Sulfa (Sulfonamide Antibiotics); ph 12:32 Tetracycline; ph 12:32 tramadol; ph - PMHx: 12:32 Cirrhosis; GERD; Hepatitis C; Hypothyroidism; rectal cancer; ph - PSHx: 12:32 Cholecystectomy; hysterectomy; liver transplant (yr); ph - Immunization history:: Adult Immunizations unknown. - Infectious Disease History:: Denies. - Social history:: Smoking status: unknown. Screenin:34 [facility] ED Fall Risk Assessment (Adult) History of falling in the last 3 months, ph including since admission No falls in past 3 months (0 pts) Confusion or Disorientation No (0 pts) Intoxicated or Sedated No (0 pts) Impaired Gait No (0 pts) Mobility Assist Device Used No (0 pt) Altered Elimination No (0 pt) Score/Fall Risk Level 0 - 2 = Low Risk Oriented to surroundings, Maintained a safe environment, Hourly rounding (assess needs \T\ fall precautionary measures) done. Abuse screen: Denies threats or abuse. Denies injuries from another. Nutritional screening: No deficits noted. Tuberculosis screening: No symptoms or risk factors identified. Assessment: 12:35 General: Appears in no apparent distress. uncomfortable, Behavior is calm, cooperative, bp appropriate for age. Pain: Complains of pain in left wrist. 14:02 Reassessment: TRANSFER PENDING. bp Vital Signs: 12:30 BP 155 / 64; Pulse 58; Resp 18; Temp 97.4; Pulse Ox 98% on R/A; ph 14:01 BP 132 / 69; Pulse 74; Resp 16; Pulse Ox 98% ; bp 15:00 BP 118 / 78; Pulse 76; Resp 18; Temp 97.5; Pulse Ox 98% on R/A; ph ED Course: 12:25 Patient arrived in ED. ms3 12:25 Jaime Cohen DO is Attending Physician. ms3 12:30 Sissy Hoyt RN is Primary Nurse. ph 12:32 Triage completed. ph 12:33 Arm band placed on Patient placed in an exam room, on a stretcher. ph 12:34 Patient has correct armband on for positive identification. Bed in low position. Call ph light in reach. Side rails up X2. Pulse ox on. NIBP on. Door closed. Noise minimized. Warm blanket given. Pillow given. 12:35 Maintain EMS IV. Dressing intact. Good blood return noted. Site clean \T\ dry. Gauge \T\ bp site: 20 RAC. Flushed with 10 mL NS. 13:23 Wrist Left 2 View In Process Unspecified. EDMS 13:34 initiated transfer to [facility]. bd 13:46 [facility] on all adult diversion,per Britney. bd 13:55 initiated transfer to [facility]. bd 14:04 CMP Sent. ph 14:04 CBC with Diff Sent. ph 14:04 Initial lab(s) drawn, by me, sent to lab. ph 14:20 Orthoglass splint: Sugar tong splint applied on left arm. ph 14:49 pt accepted in transfer to [facility] ER by dr Portillo admin approval given by dorina Mustafa 15:19 No provider procedures requiring assistance completed. Patient transferred, IV remains ph in place. Administered Medications: 12:51 Drug: morphine IVP or IV 4 mg IVP once over 4 mins Route: IVP; Infused Over: 4 mins; ph Site: right antecubital; 14:00 Follow up: Response: No adverse reaction bp 13:42 Drug: fentaNYL (PF) IVP 50 mcg IVP once Route: IVP; Site: right antecubital; bp 14:00 Follow up: Response: No adverse reaction bp 13:43 Drug: ceFAZolin IVPB 1 grams IVPB once Route: IVPB; Site: right antecubital; bp 14:20 Follow up: Response: No adverse reaction; IV Status: Completed infusion ph 13:43 Drug: Boostrix Tdap IM 0.5 ml IM once; as a single dose Route: IM; Site: right deltoid; bp 14:00 Follow up: Response: No adverse reaction bp 14:59 Drug: HYDROmorphone IVP 1 mg IVP once Route: IVP; Site: right antecubital; bp 15:15 Follow up: Response: No adverse reaction ph Medication: 12:34 VIS not applicable for this client. ph Outcome: 13:49 ER care complete, transfer ordered by MD. tong 15:37 Patient left the ED. ss 15:37 Transferred by [facility] [place]. Transfer form completed. X-rays sent w/ ph patient. 15:37 Condition: stable 15:37 Instructed on the need for transfer, Signatures: Dispatcher [employer] Chey Ireland Shelby, RN RN ss Sissy Hoyt, RN RN ph Esteban Garber, RN RN bp Vicki, Jaime, DO DO ms3
--- NOTE | 2024-07-30 13:50 | EDPHYS ---
Physician Documentation [facility] Name: Cydney Muhammad Age: 69 yrs Sex: Female : 1955 Arrival Date: 07/30/2024 Time: 12:14 Bed 30 Private MD: ED Physician Jaime Cohen HPI: 07/30 12:34 This 69 yrs old Female presents to ER via EMS with complaints of left wrist pain. ms3 13:28 69-year-old female past medical history of liver cirrhosis status post liver ms3 transplant, GERD, hepatitis C, hypothyroidism, rectal cancer presents to the emergency department via [facility] status post tripping on her rug and injuring her left wrist. EMS administered 150 mcg of fentanyl and route. Patient denies loss of consciousness with fall. Patient states her left wrist pain is rated 9/10.. Historical: - Allergies: 12:32 Amoxicillin; ph 12:32 Cipro; ph 12:32 Codeine; ph 12:32 Darvon; ph 12:32 Flagyl; ph 12:32 GABAPENTIN; ph 12:32 Levofloxacin; ph 12:32 PENICILLINS; ph 12:32 spironolactone; ph 12:32 Sulfa (Sulfonamide Antibiotics); ph 12:32 Tetracycline; ph 12:32 tramadol; ph - PMHx: 12:32 Cirrhosis; GERD; Hepatitis C; Hypothyroidism; rectal cancer; ph - PSHx: 12:32 Cholecystectomy; hysterectomy; liver transplant (yr); ph - Immunization history:: Adult Immunizations unknown. - Infectious Disease History:: Denies. - Social history:: Smoking status: unknown. ROS: 13:28 Constitutional: Negative for fever, and chills. Cardiovascular: Negative for chest ms3 pain, and palpitations. Respiratory: Negative for shortness of breath, cough, wheezing, and pleuritic chest pain, Abdomen/GI: Negative for abdominal pain, nausea, vomiting, diarrhea, and constipation, 13:28 MS/extremity: Positive for deformity, pain, tenderness, of the left wrist, Exam: 13:28 Constitutional: This is a well developed, well nourished patient who is awake, alert, ms3 and in no acute distress. Cardiovascular: Regular rate and rhythm with a normal S1 and S2. No gallops, murmurs, or rubs. Normal PMI, no JVD. No pulse deficits. Respiratory: Lungs have equal breath sounds bilaterally, clear to auscultation and percussion. No rales, rhonchi or wheezes noted. No increased work of breathing, no retractions or nasal flaring. Abdomen/GI: Soft, non-tender, with normal bowel sounds. No distension or tympany. No guarding or rebound. No evidence of tenderness throughout. 13:28 Skin: puncture wound lateral left wrist. 13:28 Musculoskeletal/extremity: Extremities: noted in the left wrist: deformity, pain, ms3 swelling, tenderness, Vital Signs: 12:30 BP 155 / 64; Pulse 58; Resp 18; Temp 97.4; Pulse Ox 98% on R/A; ph 14:01 BP 132 / 69; Pulse 74; Resp 16; Pulse Ox 98% ; bp 15:00 BP 118 / 78; Pulse 76; Resp 18; Temp 97.5; Pulse Ox 98% on R/A; ph MDM: 12:25 Medical Screening Exam initiated ms3 13:26 ED course: Discussed case with Dr Fontenot and patient will require transfer as we do ms3 not have the equipment required.. 13:28 Differential diagnosis: dislocation, open fracture. Data reviewed: vital signs, nurses ms3 notes, radiologic studies, plain films, and as a result, I will transfer. I considered the following discharge prescriptions or medication management in the emergency department Medications were administered in the Emergency Department. See MAR. Historians other than the Patient: EMS: [facility]. Counseling: I had a detailed discussion with the patient and/or guardian regarding the historical points, exam findings, and any diagnostic results supporting the discharge/admit diagnosis, radiology results, the need to transfer to another facility. 07/30 13:37 Order name: CBC with Diff; Complete Time: 15:26 ms3 07/30 13:37 Order name: CMP; Complete Time: 15:26 ms3 07/30 13:23 Order name: Wrist Left 2 View; Complete Time: 13:44 EDMS 07/30 14:03 Order name: Sugar Tong Forearm Splint; Complete Time: 14:59 ms3 Administered Medications: 12:51 Drug: morphine IVP or IV 4 mg IVP once over 4 mins Route: IVP; Infused Over: 4 mins; ph Site: right antecubital; 14:00 Follow up: Response: No adverse reaction bp 13:42 Drug: fentaNYL (PF) IVP 50 mcg IVP once Route: IVP; Site: right antecubital; bp 14:00 Follow up: Response: No adverse reaction bp 13:43 Drug: ceFAZolin IVPB 1 grams IVPB once Route: IVPB; Site: right antecubital; bp 14:20 Follow up: Response: No adverse reaction; IV Status: Completed infusion ph 13:43 Drug: Boostrix Tdap IM 0.5 ml IM once; as a single dose Route: IM; Site: right deltoid; bp 14:00 Follow up: Response: No adverse reaction bp 14:59 Drug: HYDROmorphone IVP 1 mg IVP once Route: IVP; Site: right antecubital; bp 15:15 Follow up: Response: No adverse reaction ph Disposition Summary: 07/30/24 13:49 Transfer Ordered Notes: Transfer Location: [facility] ms3 Reason: Higher level of care ms3 Condition: Stable ms3 Problem: new ms3 Symptoms: are unchanged ms3 Accepting Physician: (07/30/24 15:37) ss Diagnosis - Open Left Radiuis fracture ms3 - Open Left Ulna fracture ms3 - Fall on same level, unspecified ms3 - Abrasion of left hand ms3 - Abrasion of left elbow ms3 Forms: - Medication Reconciliation Form ms3 - SBAR form ms3 Signatures: Dispatcher [employer] EDTeresa Villeda RN RN ss Sissy Hoyt RN Esteban Delvalle ph RN RN Jaime Hays DO DO ms3 Corrections: (The following items were deleted from the chart) 13:23 12:34 Wrist Left 3 View+RAD.RAD.BRZ ordered. EDMS EDMS 13:37 13:37 CBC+H.LAB.BRZ ordered. EDMS EDMS 13:37 13:37 COMPREHENSIVE METABOLIC PANEL+C.LAB.BRZ ordered. EDMS EDMS 15:37 13:49 ms3 ss
[2024-07-30 14:10] LABS: Absolute Eosinophils 0.1 K/uL (0-0.5); Absolute Lymphocytes (CBC) 1.1 K/uL (0.7-4.9); Absolute Monocytes 0.7 K/uL (0.1-1.3); Absolute Neutrophil 10.5 K/uL (1.8-8.0); Basophils % 0.2 % (0-1.3); Eosinophils % 0.7 % (0-4.4); Hematocrit 39.3 % (36.0-45.0); Hemoglobin 13.5 g/dL (12.0-15.0); Lymphocytes % 8.9 % (15.3-44.8); MCH 31.1 pg (27.0-35.0); MCHC 34.3 g/dL (32.0-36.0); MCV 90.5 fL (80-100); MPV 9.5 fL (7.6-11.3); Monocytes % 5.8 % (3.3-12.3); Neutrophils % 84.4 % (41.7-73.7); Nucleated Red Blood Cells % 0.1 % (0-0); Platelets 191 thou/uL (152-406); RBC Red Blood Cell Count 4.34 M/uL (3.86-4.86); Red Cell Distribution Width 14.6 % (12.1-15.2)
[2024-07-30 14:35] LABS: AST/SGOT 12 U/L (15-37); Albumin 2.9 g/dL (3.4-5.0); Albumin/Globulin Ratio 0.9 (1.1-1.8); Alkaline Phosphatase 168 U/L (45-117); BUN Blood Urea Nitrogen 21 mg/dL (7-18); Bicarbonate 24 mEq/L (21-32); Bilirubin Total 0.4 mg/dL (0.2-1.0); Globulin 3.1 g/dL (2.3-3.5); Glomerular Filtration Rate 49 ml/min (=/>90); Glucose Level 133 mg/dL (74-106); Sodium Level 141 mEq/L (136-145)
[2024-07-30 14:36] LABS: ALT/SGPT < 14 U/L (13-56)
[2024-07-30] MEDS ORDERED: HYDROMORPHONE HCL 0.5 MG/0.5 ML INJ ONE (14:51)
[2024-07-30 15:45] VITALS: TEMP 97.4; O2SAT 98
[2024-07-30 15:46] VITALS: BP 132/69
== END 2024-07-30 15:37 | disposition short-term general hospital (02) ==
LOC: ER 12:14
PROC: 2W3DX1Z Immobilization of Left Lower Arm using Splint (ICD-10-PCS; principal; 2024-07-30)
DX: S52.572B Other intraarticular fracture of lower end of left radius, initial encounter for open fracture type I or II (principal); S52.602B Unspecified fracture of lower end of left ulna, initial encounter for open fracture type I or II; S60.512A Abrasion of left hand, initial encounter; S50.312A Abrasion of left elbow, initial encounter; W18.30XA Fall on same level, unspecified, initial encounter; Z94.4 Liver transplant status
CPT/HCPCS: 85025; 36415; 80053; 73100; 29125; J3010; J1171; J0690